=== PATIENT | female | born 1995 | race Asian ===

== ENCOUNTER → 2016-03-11 | Outpatient (CLI) | payer BC ==
[~2016-03-11] MED LIST: FLUT16SP NS
[2016-03-12 15:48] VITALS: BP 98/65
--- NOTE | 2016-03-12 15:49 | Urgent Care T Sheet Gen (E) ---
Intake General Temperature (Fahrenheit): 97.5 Pulse: 60 Blood Pressure Systolic: 98 Blood Pressure Diastolic: 65 Respirations: 16 SPO2: 99 Weight (Pounds): 96 Chief Complaint: cough Source: Other (friend), Patient Exam Limitations: No limitations History of Present Illness Initial Comments Pt reports she has had a cough since . She began with typical cold symptoms but these have mostly resolved; what is bothering her is the cough, which is deep, tight, and dry. She is never able to produce any phlegm, and her ribs hurt, as well as having a sore throat. She has had some sneezing and nasal congestion, but denies runny nose. She felt a little feverish yesterday but otherwise hasn't had fever or chills. So far she has tried DayQuil and NyQuil without effect. She lives in the student dorms and reports that the air is very dry. Onset & Duration: Unsure, Weeks Timing: Still present Severity: Moderate Prior Treatment: No previous treatment Home Meds Active Scripts Fluticasone Propionate 16 Gm [place].susp1 Spr NS BID PRN CONGESTION #1 BTL Use 1 spray each nostril BID or 2 sprays each nostril daily as needed for nasal congestion/allergies Prov:TONY AMBROSIO 03/11/16 Respiratory Constitutional Symptoms: See HPINo Chills, No Fever, No Malaise EENTM: See HPINo Eye pain, No Ear pain, No Ear discharge, No Nose Pain, Nose Congestion Throat pain (with coughing) Respiratory: See HPINo Short of breath, No Wheezing Cardiovascular: Chest pain (only with coughing) Gastrointestinal/Abdominal: No symptoms reported Skin: No symptoms reported Neurological: No symptoms reported Immunologic/Allergies: No symptoms reported All Other Systems Reviewed Remaining Systems: All other systems reviewed with negative findings Physical Exam Physical Exam General Appearance: WD/WN No apparent distress Eyes, Ears, Nose, Throat Ex: PERRL/EOMI Pharyngeal erythema (minimal, with some clear drainage present)No Tonsillar exudate, Other (TMs bulging bilaterally with clear fluid present; nasal turbinates mildly swollen with clear mucus present ; no sinus tenderness to palpation in maxillary and frontal sinuses) Neck Exam: Non tender Full range of motion Supple Normal inspection Respiratory Exam: Chest non-tender Lungs clear Normal breath sounds No respiratory distress Cardiovascular Exam: Regular rate, rhythm No murmur Skin Exam: Normal color Warm/dry/intact No rashes Neurologic/Psychiatric Exam: Oriented times 4 Mood/affect nml Lymphatic Exam: Other (anterior cervical adenopathy bilateral, mild, fluctuant , nontender) Departure Urgent Care Impression Chief Complaint: cough Impression: Primary Impression: Post-viral cough syndrome Departure Disposition: 01 HOME OR SELF-CARE Condition: Stable Additional Instructions: Discussed with pt that she may have some bronchial irritation continuing from her past respiratory infection, but I also think she has some ongoing drainage which may be hindering full recovery. I think it would be worthwhile to try a nasal steroid, as this will help with the inflammation of her throat and also decrease drainage. If helpful, she can use this as needed for allergies. I also will give a small amount of cough syrup to decrease her coughing at night, because rest will help her recover faster. Gave paper script for guaifenesin 100mg/codeine 10mg/5mL Take 1 tsp PO q 4 hrs PRN cough #60mL 0RF If not improving, or if worsening with fever/chills, increased cough, increased sore throat, rash, or other concerning symptoms, she should follow up for consideration of antibiotics at that time. Pt states understanding and agrees to plan. All questions answered. Scripts Fluticasone Propionate 16 Gm [place].susp1 Spr NS BID PRN CONGESTION #1 BTL Use 1 spray each nostril BID or 2 sprays each nostril daily as needed for nasal congestion/allergies Prov:TONY AMBROSIO 03/11/16 End of report . TONY AMBROSIO Mar 11, 2016 12:23
== END ==
LOC: MHUC 11:26
PROVIDERS: ATTEND Physician Assistant Medical
DX: R05 Cough (principal)
CPT/HCPCS: 99203